=== PATIENT | male | born 1960 | race Caucasian/White ===

== ENCOUNTER 2016-08-02 19:45 | Emergency (ER) | payer MEDICARE | END 2016-08-03 00:16 | disposition home or self-care (01) | LOC: D.ER 19:45 | DX: M54.5 Low back pain (principal); S39.012A Strain of muscle, fascia and tendon of lower back, initial encounter; X58.XXXA Exposure to other specified factors, initial encounter ==

== ENCOUNTER 2016-08-07 17:37 | Emergency (ER) | payer MEDICARE | END 2016-08-07 19:50 | disposition home or self-care (01) | LOC: D.ER 17:37 | DX: M54.5 Low back pain (principal); S39.012D Strain of muscle, fascia and tendon of lower back, subsequent encounter; V89.2XXD Person injured in unspecified motor-vehicle accident, traffic, subsequent encounter ==

== ENCOUNTER 2016-08-14 14:08 | Emergency (ER) | payer MEDICARE | END 2016-08-14 17:15 | disposition home or self-care (01) | LOC: D.ER 14:08 | DX: S16.1XXA Strain of muscle, fascia and tendon at neck level, initial encounter (principal); V89.2XXA Person injured in unspecified motor-vehicle accident, traffic, initial encounter; Y93.89 Activity, other specified; Y92.89 Other specified places as the place of occurrence of the external cause ==

== ENCOUNTER 2018-08-13 14:20 | Emergency (ER) | payer MEDICARE ==
[~2018-08-13] VITALS: Ht 170.2 cm; Wt 68.2 kg
[2018-08-13 14:26] VITALS: Ht 170.2 cm; Wt 68.2 kg
[2018-08-13] MEDS ORDERED: VALIUM10 MG (14:28)
[2018-08-13] MEDS ORDERED: HYDROCODON-ACE1 EA10 (14:28)
[2018-08-13 15:30] LABS: BASOPHILS 0.3 % (0-2); EOSINOPHILS 1.1 % (0-7); HEMATOCRIT 38.5 % (42.0-54.0); IMMATURE GRANULOCYTES 0.1 % (0-5); LYMPHOCYTES 14.9 % (15-50); MCH 31.3 pg (26.0-34.0); MCHC 36.4 g/dL (31.0-37.0); MCV 85.9 fL (80.0-100.0); MEAN PLATELET VOLUME 10.6 fL (7.4-10.4); MONOCYTES 7.1 % (2-11); NEUTROPHILS 76.5 % (40-80); PLATELET COUNT 275 10x3/uL (130-400); RBC 4.48 10x6/uL (4.20-6.10); RDW 12.7 % (11.5-14.5); WBC 7.2 10x3/uL (4.8-10.8)
[2018-08-13 15:37] LABS: APTT 28.2 SECONDS (22.8-39.4); INR 1.04 (0.85-1.17); PROTIME 13.1 SECONDS (11.6-15.0)
[2018-08-13 15:45] LABS: ALBUMIN 3.7 g/dL (3.4-5.0); ALKALINE PHOSPHATASE 77 U/L (46-116); ALT (SGPT) 22 U/L (10-68); BILIRUBIN - TOTAL 0.46 mg/dL (0.2-1.3); CALC OSMOLALITY 284 mosm/kg (275-300); CALCIUM 8.8 mg/dL (8.5-10.1); CARBON DIOXIDE 25.5 mmol/L (21.0-32.0); CHLORIDE - SERUM 107 mmol/L (98-107); CREATININE - SERUM 0.8 mg/dL (0.6-1.3); GLUCOSE 107 mg/dL (74-106); POTASSIUM - SERUM 3.5 mmol/L (3.5-5.1); PROTEIN - SERUM 7.4 g/dL (6.4-8.2); SODIUM 143 mmol/L (136-145); UREA NITROGEN 13 mg/dL (7-18); eGFR NON AFRICAN AMERICAN > 90 mL/min (90-120)
[2018-08-13 15:54] LABS: CKMB 0.7 U/L (0.0-3.6); CREATINE KINASE 52 UL (21-232); MAGNESIUM - SERUM 2.3 mg/dL (1.8-2.4); TROPONIN-I < 0.017 ng/mL (0.000-0.060)
[2018-08-13 17:19] VITALS: BP 142/85
== END 2018-08-13 17:19 | disposition home or self-care (01) ==
LOC: D.ER 14:20
PROVIDERS: Family Medicine
DX: R55 Syncope and collapse (principal); F13.239 Sedative, hypnotic or anxiolytic dependence with withdrawal, unspecified